=== PATIENT | male | born 1975 ===

== ENCOUNTER 2023-02-22 20:19 | Emergency (ER) | payer SELFPAY ==
[2023-02-22 20:25] VITALS: BP 170/90; PULSE 84; O2SAT 98; BMI 21.1
--- NOTE | 2023-02-22 20:35 | PC.NURSE ---
pt ambulatory to and from bathroom with a steady gait. speaking clear full sentences answering questions appropriately. no apparent distress. plan of care ongoing
--- NOTE | 2023-02-22 20:43 | ED.ALCOHOL ---
HPI - Alcohol General Stated Complaint: etoh Time Seen by Provider: 02/22/23 20:42 Source: patient Mode of arrival: EMS Limitations: no limitations
--- NOTE | 2023-02-22 20:54 | PC.NURSE ---
Staff went to obtain VS, pt was not present on the stretcher.
--- NOTE | 2023-02-22 20:56 | PC.NURSE ---
prior to elopement pt was observed, gait steady. denies any complaints
== END 2023-02-22 22:30 | disposition left against medical advice (07) ==
LOC: HO.ED 22:27
PROVIDERS: Emergency Provider Emergency Medicine
DX: F10.129 Alcohol abuse with intoxication, unspecified (principal)
CPT/HCPCS: 99282